=== PATIENT | female | born 2000 | race Two or more races ===

== ENCOUNTER → 2023-05-30 | Outpatient (CLI) | payer OTHER | LOC: M PLARAD 15:10 | PROVIDERS: ATTEND Family Medicine | DX: G43.109 Migraine with aura, not intractable, without status migrainosus (principal) ==

== ENCOUNTER → 2024-05-25 | Outpatient (CLI) | payer OTHER | LOC: M WHC 07:41 | PROVIDERS: ATTEND Family Medicine | DX: C49.9 Malignant neoplasm of connective and soft tissue, unspecified (principal) ==

== ENCOUNTER 2024-08-22 00:55 | Emergency (ER) | payer OTHER ==
[~2024-08-22] VITALS: Ht 160 cm; Wt 105.6 kg
[2024-08-22] MEDS ORDERED: DEBL1TAB (07:20)
[2024-08-22] MEDS ORDERED: FLUO-365 (07:20)
[2024-08-22] MEDS ORDERED: VENL37.598 (07:20)
[2024-08-22] MEDS: PROMETHAZINE 25MG/ML 1ML VIAL IV ONE (08:19)
[2024-08-22] MEDS: diphenhydrAMINE 50MG/ML VIAL IV STA (08:19)
[2024-08-22] MEDS: NS (Normal Saline) 0.9% 1,000 ML IV ONE (08:20)
[2024-08-22] MEDS: KETOROLAC TROMETHAMINE 10 MG TAB PO ONE (08:20)
[2024-08-22 08:33] LABS: BASO % 0.3 % (0.0-1.0); EOS % 0.4 % (0.0-3.0); HEMATOCRIT 42.4 % (36.0-47.0); HEMOGLOBIN 14.8 g/dl (12.0-15.5); LYMPH % 42.7 % (24.0-44.0); MEAN CORPUSCULAR HEMOGLOBIN 29.7 pg (27.0-33.0); MEAN CORPUSCULAR HGB CONC 34.9 g/dl (32.0-36.5); MEAN CORPUSCULAR VOLUME 85.1 fl (80.0-96.0); MONO # 0.5 10^3/uL (0.0-0.8); MONO % 7.6 % (2.0-8.0); NEUTROPHILS # 3.4 10^3/uL (1.5-8.5); NEUTROPHILS % 48.9 % (36.0-66.0); PLATELET COUNT, AUTOMATED 293 10^3/uL (150-450); RED BLOOD COUNT 4.98 10^6/uL (4.00-5.40)
[2024-08-22 08:54] LABS: ALKALINE PHOSPHATASE 71 U/L (35-104); ALT/SGPT 54 U/L (7.0-40); AST/SGOT 29 U/L (<34); BILIRUBIN,TOTAL 0.4 MG/DL (0.3-1.2); BLOOD UREA NITROGEN 12 MG/DL (9-23); CALCIUM LEVEL 9.2 MG/DL (8.5-10.1); CARBON DIOXIDE LEVEL 28 MMOL/L (20-31); CHLORIDE LEVEL 106 MMOL/L (98-107); GLOMERULAR FILTRATION RATE > 90.0 (>60); GLUCOSE, FASTING 92 MG/DL (60-100); POTASSIUM SERUM 4.4 MMOL/L (3.5-5.1); SODIUM LEVEL 142 MMOL/L (136-145); TOTAL PROTEIN 6.8 G/DL (5.7-8.2)
[2024-08-22 13:58] VITALS: BP 129/78; TEMP 97.6; O2SAT 99
[2024-08-22] MEDS ORDERED: TOPI-256 PO (14:10)
== END 2024-08-22 14:40 | disposition home or self-care (01) ==
LOC: M ED 00:55
DX: R51.9 Headache, unspecified (principal); J45.909 Unspecified asthma, uncomplicated; E28.2 Polycystic ovarian syndrome; F41.9 Anxiety disorder, unspecified; Z88.0 Allergy status to penicillin; Z88.1 Allergy status to other antibiotic agents; Z79.899 Other long term (current) drug therapy
CPT/HCPCS: 70450; 70544; 70551; 72141; 80053; 83605; 84702; 85025; 96361; 96374; 99284; J1200; J2550